=== PATIENT | male | born 1950 | race Caucasian/White ===

== ENCOUNTER → 2023-05-12 06:28 | Day surgery (SDC) | payer MEDICARE, SELFPAY | LOC: GI 06:28 | PROVIDERS: ATTENDING PHYSICIAN Internal Medicine | DX: Z12.11 Encounter for screening for malignant neoplasm of colon (principal); R19.5 Other fecal abnormalities; D12.0 Benign neoplasm of cecum; D12.4 Benign neoplasm of descending colon | CPT/HCPCS: 45385; 45380; 88305 ==

== ENCOUNTER → 2023-11-23 16:26 | Outpatient (REF) | payer MEDICARE, SELFPAY | LOC: RAD 16:26 | PROVIDERS: ATTENDING PHYSICIAN Family Medicine | DX: M79.89 Other specified soft tissue disorders (principal) | CPT/HCPCS: 73590 ==